=== PATIENT | female | born 1990 | race Caucasian/White ===

== ENCOUNTER → 2019-05-25 16:48 | Outpatient (BNVA) | payer BC, SELFPAY | PROVIDERS: Family Provider Family Medicine; Visit Provider Nurse Practitioner Family | DX: R50.9 Fever, unspecified (principal); J10.1 Influenza due to other identified influenza virus with other respiratory manifestations | CPT/HCPCS: 81000; 87071; 87400; 87880 ==

== ENCOUNTER 2019-11-09 01:22 | Emergency (ER) | payer BC, SELFPAY ==
[2019-11-09 01:28] VITALS: BP 128/86; PULSE 98; RESP 14; TEMP 36.5; O2SAT 100; BMI 17.5
--- NOTE | 2019-11-09 01:38 | ECG_ITS ---
[facility] Test Date: 2019-11-09 Pat Name: Vesta Steward Department: Room: Gender: Female Health Spa Manager: kwame : 1990 Requested By: Jerrell Putnam Order Number: [id number] Meron MD: Tyrone Rivas M.D. Measurements Intervals [place] Rate: 94 P: 74 GA: 128 QRS: 84 QRSD: 86 T: -10 QT: 345 QTc: 432 Interpretive Statements SINUS RHYTHM WITH SINUS ARRHYTHMIA NONSPECIFIC T-WAVE ABNORMALITY No previous ECG available for comparison Electronically Signed On 11-09-2019 10:38:10 CDT by Tyrone Rivas M.D. [id number]
--- NOTE | 2019-11-09 01:38 | W.ED.EXTPRO ---
HPI - Extremity Problem General: Chief complaint: Extremity Injury, Upper Stated complaint: cp Time Seen by Provider: 11/09/19 01:38 Source: patient Mode of arrival: ambulatory Limitations: no limitations History of Present Illness: HPI Narrative: 28-year-old female comes in today with complaints of left side shoulder discomfort. Patient states she has had episodes like this before in the past that has been anxiety related. Patient feels that she is anxious. Patient appears well. Patient appears no acute distress. Patient reports that she did have lab done recently and it showed that her magnesium was a little low and she knows this causes the symptoms but wanted to be checked just to make sure. Review of Systems General: Reports: 10 or more systems reviewed and unremarkable except in HPI and below Musc: Reports: extremity pain (left shoulder pain) PFSH ED PFSH: Social History (Updated 05/25/19 @ 16:32 by Kiley Herrera LPN) Smoking and tobacco status: never smoked Physical Exam Const: COMMON NORMALS: no acute distress and patient oriented x3 GENERAL APPEARANCE: cooperative HENMT: COMMON NORMALS: normocephalic and Normal external nose present HEAD & SCALP: normal to inspection and normocephalic NOSE: Normal external nose present MOUTH: Normal oral and palatal mucosa present Eye: GENERAL EYE: appearance normal, both eyes and all related structures Neck/C-Spine: COMMON NORMALS: full ROM Lymph: LYMPHATIC: no lymphadenopathy noted Chest: COMMONS NORMALS: normal inspection of the chest Resp: COMMON NORMALS: normal respiratory effort EFFORT & INSPECTION: Yes able to speak in complete sentences Cardio: COMMON NORMALS: regular rate and regular rhythm RATE: regular rate RHYTHM: regular rhythm GI: COMMON NORMALS: non-tender Back/Pelvis: COMMON NORMALS: thoracic and lumbar spine normal to inspection Extremity: COMMON NORMALS: normal to inspection Neuro: COMMON NORMALS: patient oriented x3 and moves all extremities Psych: COMMON NORMALS: mental status grossly normal and cooperative Skin: COMMON NORMALS: no rashes or lesions noted GENERAL SKIN EXAM: no rashes or lesions noted Course Vital Signs: Vital signs: Vital Signs Temperature 97.7 F 11/09/19 01:28 Pulse Rate 87 11/09/19 01:48 Respiratory Rate 16 11/09/19 01:48 Blood Pressure 123/76 11/09/19 01:48 Pulse Oximetry 98 11/09/19 01:48 MDM - Extremity (Nontraumatic) MDM Narrative: Medical decision making narrative: Patient comes in today for complaints of left shoulder discomfort and anxiety. Patient states that she thinks she is just really anxious due to her underlying anxiety disorder. Patient appears well. Patient appears in no acute distress. Range of motion of the shoulder is noted but does have some reduction and abduction of the shoulder. Pulses are intact and mild tenderness is noted in the anterior part. EKG was normal sinus rhythm without any ectopy or significant abnormality. Differential diagnosis includes but not limited to shoulder strain, malingering, anxiety. Reviewed exam with patient with recommendations for further treatment and follow-up. Patient reported understanding and agreed to plan. Discharge Plan Discharge Patient Disposition: Home Clinical Impression: Anxiety Left shoulder strain Qualifiers: Encounter type: initial encounter Qualified Code(s): S46.912A - Strain of unspecified muscle, fascia and tendon at shoulder and upper arm level, left arm, initial encounter Condition: Stable Prescriptions: No Action No Known Home Medications RF: 0 Discharge Orders: Discharge Order (Routine); Ordered 11/09/19 Ordered By: Jerrell Dugan Referrals: Pramod Koenig MD [Primary Care Provider] - Discharge Diet: Usual diet Discharge Activity: Increase activity as tolerated Patient Instructions: Shoulder Sprain (ED) Activity Restrictions/Additional Instructions: Drink plenty of fluids. Healthy diet and exercise. Use naproxen or ibuprofen as needed for shoulder pain. Follow-up with primary care for further treatment and evaluation. Return to the emergency department for new concerns. Coding Level of Care Code ED Ep Technologist for [facility] Exam Comprehensive
[2019-11-09 01:48] VITALS: BP 123/76; PULSE 87; RESP 16; O2SAT 98
--- NOTE | 2019-11-09 02:01 | W.ED.EXTPRO ---
HPI - Extremity Problem General: Chief complaint: Extremity Injury, Upper Stated complaint: cp Time Seen by Provider: 11/09/19 01:38 Source: patient Mode of arrival: ambulatory Limitations: no limitations PFSH ED PFSH: Social History (Updated 05/25/19 @ 16:32 by Kiley Herrera LPN) Smoking and tobacco status: never smoked Course Vital Signs: Vital signs: Vital Signs Temperature 97.7 F 11/09/19 01:28 Pulse Rate 87 11/09/19 01:48 Respiratory Rate 16 11/09/19 01:48 Blood Pressure 123/76 11/09/19 01:48 Pulse Oximetry 98 11/09/19 01:48 MDM - Extremity (Nontraumatic) EKG Data^: EKG 1: Attestation: I personally reviewed and interpreted this EKG as follows: (0145, sinus rhythm with a regular rate of 94 bpm, no ectopy and no ST elevation.) Discharge Plan Discharge Patient Disposition: Home Clinical Impression: Anxiety Left shoulder strain Qualifiers: Encounter type: initial encounter Qualified Code(s): S46.912A - Strain of unspecified muscle, fascia and tendon at shoulder and upper arm level, left arm, initial encounter Condition: Stable Prescriptions: No Action No Known Home Medications RF: 0 Discharge Orders: Discharge Order (Routine); Ordered 11/09/19 Ordered By: Jerrell Dugan Referrals: Pramod Koenig MD [Primary Care Provider] - Discharge Diet: Usual diet Discharge Activity: Increase activity as tolerated Patient Instructions: Shoulder Sprain (ED) Activity Restrictions/Additional Instructions: Drink plenty of fluids. Healthy diet and exercise. Use naproxen or ibuprofen as needed for shoulder pain. Follow-up with primary care for further treatment and evaluation. Return to the emergency department for new concerns. Coding Level of Care Code ED Nurses Medical Assistants Phlebotomists for [facility]ider
[2019-11-09 02:07] VITALS: BP 121/71; PULSE 67; RESP 16; O2SAT 98
[2019-11-09] MEDS: LORazepam 0.5 mg Tablet PO (02:12)
[2019-11-09] MEDS: naproxen 500 mg Tablet PO (02:20)
== END 2019-11-09 02:15 | disposition home or self-care (01) ==
PROVIDERS: Emergency Provider Nurse Practitioner Family; PCP Family Medicine
DX: S46.912A Strain of unspecified muscle, fascia and tendon at shoulder and upper arm level, left arm, initial encounter (principal); F41.9 Anxiety disorder, unspecified; X58.XXXA Exposure to other specified factors, initial encounter
CPT/HCPCS: 12345; 93005; 99282; 99283

== ENCOUNTER → 2020-06-05 14:50 | Outpatient (BNVA) | payer BC, SELFPAY | PROVIDERS: PCP Family Medicine; Visit Provider Nurse Practitioner Family | DX: Z20.822 Contact with and (suspected) exposure to COVID-19 (principal); J06.9 Acute upper respiratory infection, unspecified | CPT/HCPCS: 87400; 87635 ==